=== PATIENT | female | born 1980 | race Caucasian/White ===

== ENCOUNTER 2016-12-31 17:14 | Emergency (ER) | payer MEDICAID ==
[~2016-12-31] VITALS: Ht 152.4 cm; Wt 89.5 kg
[~2016-12-31 17:14] MED LIST: DSS100 PO; PERCT PO
[2016-12-31] MEDS ORDERED: IBUP-2071 PO (17:30)
[2016-12-31] MEDS ORDERED: PHEN8TAB15 PO (17:30)
[2016-12-31] MEDS ORDERED: AMOX250C4 PO (17:30)
[2016-12-31] MEDS ORDERED: KETOROLAC TROMETHAMINE 30 MG/ML VIAL IM ONE (19:15)
[2016-12-31 19:56] VITALS: BP 131/85
== END 2016-12-31 20:05 | disposition home or self-care (01) ==
LOC: EMS 17:16
DX: K12.0 Recurrent oral aphthae (principal); J02.9 Acute pharyngitis, unspecified; Z90.89 Acquired absence of other organs; Z90.49 Acquired absence of other specified parts of digestive tract
CPT/HCPCS: 96372; 99283; J1885

== ENCOUNTER 2017-01-29 18:13 | Emergency (ER) | payer MEDICAID ==
[~2017-01-29] VITALS: Ht 152.4 cm; Wt 88.6 kg
[~2017-01-29 18:13] MED LIST changes: +AMOX250C4 PO; -DSS100 PO; +IBUP-2071 PO; -PERCT PO; +PHEN8TAB15 PO
[2017-01-29 21:14] VITALS: BP 134/82
[2017-01-29] MEDS ORDERED: HYDROCODONE/ACETAMINOPHEN 5-325 MG TABLET PO ONE (21:15)
== END 2017-01-29 21:51 | disposition home or self-care (01) ==
LOC: EMS 18:14
DX: K04.7 Periapical abscess without sinus (principal); K02.9 Dental caries, unspecified
CPT/HCPCS: 99283

== ENCOUNTER 2017-07-02 13:39 | Emergency (ER) | payer MEDICAID ==
[~2017-07-02] VITALS: Ht 152.4 cm; Wt 95.0 kg
[~2017-07-02 13:39] MED LIST changes: -AMOX250C4 PO
[2017-07-02] MEDS ORDERED: IBUPROFEN 800 MG TABLET PO ONE (14:15)
[2017-07-02] MEDS ORDERED: SODIUM CHLORIDE 0.9% 1,000 ML IV ONE ×3 (14:15→16:45)
[2017-07-02] MEDS ORDERED: DEXAMETHASONE SOD PHOS 4 MG/ML 5 ML VIAL IM ONE (14:15)
[2017-07-02 14:38] LABS: BASOPHILS % (AUTO) 0.3 % (0.0-2.0); EOSINOPHILS % (AUTO) 0.3 % (1.0-6.0); HEMATOCRIT 36.6 % (36-46); HEMOGLOBIN 12.5 g/dL (12.0-16.0); LYMPHOCYTES # (AUTO) 0.8 K/uL (1.0-4.8); LYMPHOCYTES % (AUTO) 6.8 % (22.0-44.0); MEAN CORPUSCULAR HEMOGLOBIN 28.3 pg (26.0-34.0); MEAN CORPUSCULAR HGB CONC 34.1 G/dL (31.0-37.0); MEAN CORPUSCULAR VOLUME 83 fL (80-100); MONOCYTES # (AUTO) 0.7 K/uL (0.1-1.0); MONOCYTES % (AUTO) 5.6 % (2.0-9.0); NEUTROPHILS # (AUTO) 10.9 K/uL (1.8-7.7); PLATELET COUNT (AUTO) 243 K/uL (150-450); RED BLOOD CELL COUNT(AUTO) 4.42 MIL/uL (4.00-5.20); RED CELL DISTRIBUTION WIDTH 14.4 % (11.5-14.5)
[2017-07-02 14:41] LABS: RAPID GROUP A STREP POSITIVE (NEGATIVE)
[2017-07-02 14:45] LABS: ANION GAP 12 mmol/L (8-16); CALCIUM, TOTAL 8.7 mg/dL (8.8-10.5); CARBON DIOXIDE 22 mmol/L (22-29); CHLORIDE 101 mmol/L (98-107); CREATININE 0.71 mg/dL (0.60-1.30); GLOMERULAR FILTR. RATE CALC > 60 mL/min (>60); GLUCOSE,RANDOM 123 mg/dL (70-110); POTASSIUM 3.6 mmol/L (3.5-5.1); SODIUM SERUM 135 mmol/L (136-145); UREA NITROGEN, BLOOD 7 mg/dL (7-18)
[2017-07-02 14:51] LABS: LACTIC ACID 1.8 mmol/L (0.4-2.0)
[2017-07-02 14:51] LABS: INFLUENZA TYPE A NEGATIVE FOR TYPE A (NEGATIVE); INFLUENZA TYPE B NEGATIVE FOR TYPE B (NEGATIVE)
[2017-07-02 14:53] LABS: APPEARANCE,URINE CLEAR (CLEAR); BILIRUBIN,URINE NEGATIVE (NEGATIVE); GLUCOSE, URINE (UA) NEGATIVE (NEGATIVE); KETONES,URINE NEGATIVE (NEGATIVE); LEUKOCYTE ESTERASE ,URINE NEGATIVE (NEGATIVE); NITRATE,URINE NEGATIVE (NEGATIVE); OCCULT BLOOD,URINE MODERATE (NEGATIVE); PH,URINE 6.5 (5.0-8.0); PROTEIN,URINE SEE CONFIRM (NEGATIVE)
[2017-07-02 14:58] LABS: ALANINE AMINOTRANSFERASE 21 U/L (12-78); ALBUMIN 3.6 g/dL (3.4-5.0); ALKALINE PHOSPHATASE 94 U/L (46-116); ASPARTATE AMINOTRANSFERASE 17 U/L (15-37); BILIRUBIN,TOTAL 0.4 mg/dL (0.1-1.0)
[2017-07-02] MEDS ORDERED: PENICILLIN G BENZATHINE LA 1,200,000 UNITS/2 ML SYRINGE IM ONE (15:00)
[2017-07-02 15:08] LABS: SULFOSALICYLIC ACID,URINE 2+ (Negative)
[2017-07-02 15:10] LABS: BACTERIA,URINE Rare /HPF (None Seen); SQUAMOUS EPITHELIAL CELL,UR Few /LPF (None Seen); WBC,URINE 0-2 /HPF (0-5)
[2017-07-02] MEDS ORDERED: ACETAMINOPHEN 500 MG TABLET PO ONE (15:30)
[2017-07-02 17:36] VITALS: BP 119/58
== END 2017-07-02 17:59 | disposition home or self-care (01) ==
LOC: EMS 13:40
DX: J02.0 Streptococcal pharyngitis (principal); R51 Headache
CPT/HCPCS: 36415; 51701; 71045; 80053; 81001; 83605; 84703; 85025; 87430; 87804; 93005; 96360; 96361; 96372; 99285; J0561; J1100; J7030

== ENCOUNTER 2022-03-17 01:41 | Emergency (ER) | payer MEDICAID ==
[~2022-03-17] VITALS: Ht 152.4 cm; Wt 98.0 kg
[~2022-03-17 01:41] MED LIST changes: -PHEN8TAB15 PO
[2022-03-17 02:30] LABS: COVID AG,FIA SOURCE NASAL SWAB
[2022-03-17 02:54] LABS: INFLUENZA TYPE A NEGATIVE FOR TYPE A (NEGATIVE); INFLUENZA TYPE B NEGATIVE FOR TYPE B (NEGATIVE)
[2022-03-17] MEDS ORDERED: ACETAMINOPHEN 500 MG TABLET PO ONE (03:00)
[2022-03-17] MEDS ORDERED: BENZOCAINE/MENTHOL LOZENGE PO ONE (03:00)
[2022-03-17] MEDS ORDERED: KETOROLAC TROMETHAMINE 30 MG/ML VIAL IM ONE (03:00)
[2022-03-17] MEDS ORDERED: BENZ1LOZ77 PO (03:37)
[2022-03-17] MEDS ORDERED: IBUP-2070 PO (03:37)
[2022-03-17] MEDS ORDERED: BENZ-70 PO (03:37)
[2022-03-17 03:43] VITALS: BP 130/86
== END 2022-03-17 03:44 | disposition home or self-care (01) ==
LOC: EMS 01:41
DX: B34.9 Viral infection, unspecified (principal); Z90.49 Acquired absence of other specified parts of digestive tract; Z90.710 Acquired absence of both cervix and uterus; Z20.822 Contact with and (suspected) exposure to COVID-19
CPT/HCPCS: 99283; 87426; 87430; 87804; 96372; J1885

== ENCOUNTER 2022-08-16 08:25 | Emergency (ER) | payer MEDICAID ==
[~2022-08-16] VITALS: Ht 157.5 cm; Wt 97.7 kg
[~2022-08-16 08:25] MED LIST changes: +BENZ-227 PO; +BENZ1LOZ77 PO; +IBUP-1492 PO; +IBUP-1493 PO; -IBUP-2071 PO
[2022-08-16 08:44] VITALS: BP 153/90
[2022-08-16] MEDS ORDERED: METO-408 PO (08:45)
[2022-08-16] MEDS ORDERED: METF-1211 PO (08:45)
[2022-08-16] MEDS ORDERED: KETOROLAC TROMETHAMINE 30 MG/ML VIAL IM ONE (10:00)
[2022-08-16] MEDS ORDERED: OxyCODONE HCL 5 MG IR TABLET PO ONE (12:30)
== END 2022-08-16 12:41 | disposition home or self-care (01) ==
LOC: EMS 08:26
DX: S76.012A Strain of muscle, fascia and tendon of left hip, initial encounter (principal); I10 Essential (primary) hypertension; Z90.49 Acquired absence of other specified parts of digestive tract; Z90.710 Acquired absence of both cervix and uterus; W06.XXXA Fall from bed, initial encounter; Y93.89 Activity, other specified; Y92.89 Other specified places as the place of occurrence of the external cause; Y99.8 Other external cause status
CPT/HCPCS: 99283; 73503; 96372; J1885

== ENCOUNTER 2023-11-13 23:21 | Emergency (ER) | payer MEDICAID, OTHER ==
[~2023-11-13] VITALS: Ht 127 cm; Wt 103.0 kg
[~2023-11-13 23:21] MED LIST changes: -BENZ-227 PO; -BENZ1LOZ77 PO; -IBUP-1492 PO; -IBUP-1493 PO; +METF-1211 PO; +METO-408 PO
[2023-11-13 23:52] VITALS: TEMP 98.3
[2023-11-14 00:30] LABS: APPEARANCE,URINE CLEAR (CLEAR); BILIRUBIN,URINE NEGATIVE (NEGATIVE); COLOR,URINE LIGHT YELLOW (YELLOW); GLUCOSE, URINE (UA) TRACE mg/dL (NEGATIVE); KETONES,URINE NEGATIVE (NEGATIVE); LEUKOCYTE ESTERASE ,URINE TRACE (NEGATIVE); NITRATE,URINE NEGATIVE (NEGATIVE); OCCULT BLOOD,URINE TRACE (NEGATIVE); PH,URINE 5.5 (5.0-8.0); PROTEIN,URINE 30-70 mg/dL (NEGATIVE); SPECIFIC GRAVITIY, URINE 1.029 (1.003-1.030); UROBILINOGEN,URINE <=1.0 mg/dL (<=1.0)
[2023-11-14 00:33] LABS: HCG,QUAL URINE NEGATIVE (NEGATIVE)
[2023-11-14 00:39] LABS: BASOPHILS % (AUTO) 0.9 % (0.0-2.0); EOSINOPHILS % (AUTO) 0.5 % (1.0-6.0); HEMOGLOBIN 10.8 g/dL (12.0-16.0); LYMPHOCYTES # (AUTO) 2.2 K/uL (1.0-4.8); LYMPHOCYTES % (AUTO) 15.1 % (22.0-44.0); MEAN CORPUSCULAR HEMOGLOBIN 30.8 pg (26.0-34.0); MEAN CORPUSCULAR HGB CONC 32.8 G/dL (31.0-37.0); MEAN CORPUSCULAR VOLUME 94 fL (80-100); MONOCYTES # (AUTO) 1.3 K/uL (0.1-1.0); MONOCYTES % (AUTO) 8.6 % (2.0-9.0); NEUTROPHILS % (AUTO) 74.9 % (40.0-70.0); PLATELET COUNT (AUTO) 298 K/uL (150-450); RED BLOOD CELL COUNT(AUTO) 3.52 MIL/uL (4.00-5.20); RED CELL DISTRIBUTION WIDTH 13.9 % (11.5-14.5); WHITE BLOOD COUNT (AUTO) 14.6 K/uL (4.5-11.0)
[2023-11-14 00:41] LABS: BACTERIA,URINE Few /HPF (None Seen); SQUAMOUS EPITHELIAL CELL,UR Few /LPF (None Seen)
[2023-11-14 00:54] LABS: CALCIUM, TOTAL 9.2 mg/dL (8.8-10.5); CREATININE 1.01 mg/dL (0.60-1.30)
[2023-11-14 01:13] LABS: POTASSIUM 2.9 mmol/L (3.5-5.1)
[2023-11-14] MEDS: SODIUM CHLORIDE 0.9% 1,000 ML IV ONE (01:38)
[2023-11-14] MEDS: POTASSIUM CHLORIDE 10% 40 MEQ/30 ML LIQUID UDCUP PO ONE (02:02)
[2023-11-14] MEDS: KETOROLAC TROMETHAMINE 30 MG/ML VIAL IVP ONE (02:03)
[2023-11-14 04:41] LABS: ANION GAP 6 mmol/L (8-16); CALCIUM, TOTAL 8.3 mg/dL (8.8-10.5); CARBON DIOXIDE 26 mmol/L (22-29); CHLORIDE 105 mmol/L (98-107); CREATININE 0.62 mg/dL (0.60-1.30); GLOMERULAR FILTR. RATE CALC > 60 mL/min (>60); GLUCOSE,RANDOM 105 mg/dL (70-110); POTASSIUM 4.3 mmol/L (3.5-5.1); SODIUM SERUM 137 mmol/L (136-145); UREA NITROGEN, BLOOD 9 mg/dL (7-18)
[2023-11-14] MEDS: METHOCARBAMOL 500 MG TABLET PO ONE (04:41)
[2023-11-14] MEDS: LIDOCAINE 5% TRANSDERMAL PATCH TD ONE (04:44)
[2023-11-14] MEDS ORDERED: IBUP-1492 PO (05:04)
[2023-11-14] MEDS ORDERED: DIPH25CA85 PO (05:05)
[2023-11-14] MEDS ORDERED: METH-659 PO (05:05)
[2023-11-14 05:30] VITALS: BP 141/86; PULSE 72; RESP 16
[2023-11-14] MEDS ORDERED: CEPH-558 PO (05:43)
== END 2023-11-14 05:51 | disposition home or self-care (01) ==
LOC: EMS 23:22
DX: S39.012A Strain of muscle, fascia and tendon of lower back, initial encounter (principal); L30.9 Dermatitis, unspecified; R20.2 Paresthesia of skin; I10 Essential (primary) hypertension; K80.20 Calculus of gallbladder without cholecystitis without obstruction; Z90.49 Acquired absence of other specified parts of digestive tract; Z90.710 Acquired absence of both cervix and uterus; X58.XXXA Exposure to other specified factors, initial encounter; Y93.89 Activity, other specified; Y92.89 Other specified places as the place of occurrence of the external cause; Y99.8 Other external cause status
CPT/HCPCS: 99285; 80048; 81001; 84703; 85025; 36415; 74176; 96374; 96361; J1885

== ENCOUNTER 2025-01-02 15:01 | Emergency (ER) | payer OTHER ==
[~2025-01-02] VITALS: Ht 157.5 cm; Wt 88.6 kg
[~2025-01-02 15:01] MED LIST changes: +CEPH-558 PO; +DIPH25CA85 PO; +IBUP-1492 PO; +METH-659 PO
[2025-01-02 15:33] LABS: COVID AG,FIA SOURCE NASAL SWAB
[2025-01-02 15:49] LABS: RAPID GROUP A STREP NEGATIVE (NEGATIVE)
[2025-01-02 15:56] LABS: INFLUENZA TYPE A NEGATIVE FOR TYPE A (NEGATIVE); INFLUENZA TYPE B NEGATIVE FOR TYPE B (NEGATIVE); SARS-COV2 (COVID) ANTIGEN,FIA Negative (Negative)
[2025-01-02] MEDS ORDERED: IBUP-1554 PO (16:18)
[2025-01-02] MEDS ORDERED: ACET-2080 PO (16:18)
[2025-01-02] MEDS ORDERED: GUAIFDM PO (16:18)
[2025-01-02] MEDS: ACETAMINOPHEN 500 MG TABLET PO ONE (16:25)
[2025-01-02] MEDS: DEXAMETHASONE SOD PHOS 4 MG/ML VIAL IM ONE (16:26)
[2025-01-02] MEDS: GuaiFENesin/D-METHORPHAN [SUGAR-FREE] 200-20MG/10 ML SYRUP UDCUP PO ONE (16:28)
[2025-01-02 17:05] VITALS: BP 112/69; PULSE 74; RESP 18; TEMP 97.4; O2SAT 97
== END 2025-01-02 17:58 | disposition home or self-care (01) ==
LOC: EMS 15:01
DX: J02.9 Acute pharyngitis, unspecified (principal); R05.9 Cough, unspecified; G47.9 Sleep disorder, unspecified; I10 Essential (primary) hypertension; Z79.899 Other long term (current) drug therapy; Z90.49 Acquired absence of other specified parts of digestive tract; Z90.710 Acquired absence of both cervix and uterus; Z20.822 Contact with and (suspected) exposure to COVID-19
CPT/HCPCS: 99283; 87426; 87430; 87804; 96372; J1100